=== PATIENT | female | born 1935 | race Caucasian/White ===

== ENCOUNTER 2017-04-01 11:19 | Outpatient (CLI) | payer MEDICARE, OTHER ==
[2017-04-01] MEDS ORDERED: CELEXA40 MG PO (11:37)
[2017-04-01] MEDS ORDERED: DESERYL100 MG PO (11:38)
[2017-04-01] MEDS ORDERED: HYDROCHLOROTH12.5 M1 PO (11:38)
[2017-04-01] MEDS ORDERED: REMERON15 MG PO (11:38)
[2017-04-01] MEDS ORDERED: AUGMENTIN 500-11 TA1 PO (11:39)
[2017-04-01 12:10] VITALS: BP 152/69; BMI 32.3
[2017-04-01 12:10] LABS: BASOPHILS 0.3 % (0-2); EOSINOPHILS 8.1 % (0-7); HEMATOCRIT 25.2 % (36.0-48.0); IMMATURE GRANULOCYTES 0.2 % (0-5); MCH 23.9 pg (26.0-34.0); MCHC 28.6 g/dL (31.0-37.0); MCV 83.7 fL (80.0-100.0); MEAN PLATELET VOLUME 9.2 fL (7.4-10.4); MONOCYTES 7.8 % (2-11); NEUTROPHILS 58.6 % (40-80); PLATELET COUNT 293 10x3/uL (130-400); RBC 3.01 10x6/uL (4.00-5.40); RDW 17.7 % (11.5-14.5); WBC 6.4 10x3/uL (4.8-10.8)
[2017-04-01 12:27] LABS: ANION GAP 18.3 mmol/L (8-16); CALCIUM 8.7 mg/dL (8.5-10.1); CARBON DIOXIDE 21.5 mmol/L (21.0-32.0); POTASSIUM - SERUM 3.8 mmol/L (3.5-5.1)
[2017-04-01 12:31] LABS: HEMOGLOBIN 7.2 g/dL (12-16)
--- NOTE | 2017-04-01 13:25 | NUR ---
1234 CRITICAL LAB VALUE OF HGB 7.2 CALLED FROM LAB 1236 DR BAGLEY PAGED 1246 DR BAGLEY CALLED, HGB 7.2, HCT 25.2, MCV 83.[address]. [address] BAGLEY STATES HE WILL CHECK FOR PREVIOUS LAB RESULTS FOR PT AND CALL BACK. 1300 DR BAGLEY HERE SPEAKING WITH PT 1315 DR BAGLEY STATES PROCEDURE CANCELLED FOR TODAY,PT TO BE DC'D TO HOME. DR BAGLEY HAS SPOKEN WITH DR MAXWELL, AND PT TO FOLLOW UP IN DR MAXWELL' OFFICE TOMORROW AT 12:30. IV DC'D WITH CATH INTACT AND SANDWICH TRAY SERVED TO PT.
--- NOTE | 2017-04-01 13:47 | NUR ---
1345 PT HAS KARMA SANDWICH AND PO FLUIDS WITH NO C/O. REVIEWED DC INSTRUCTIONS AND PT VERBALIZES UNDERSTANDING. PT ESCORTED TO PRIVATE AUTO VIA WC BY STAFF WITH DAUGHTER IN LAW DRIVING HER HOME. PT WITHOUT C/O AT TIME OF DC.
== END 2017-04-01 13:45 | disposition home or self-care (01) ==
LOC: D.CATH 11:19
PROVIDERS: Internal Medicine Cardiovascular Disease
DX: I20.9 Angina pectoris, unspecified (principal); R94.30 Abnormal result of cardiovascular function study, unspecified; R06.02 Shortness of breath; Z01.810 Encounter for preprocedural cardiovascular examination; Z01.811 Encounter for preprocedural respiratory examination; Z01.812 Encounter for preprocedural laboratory examination; Z53.9 Procedure and treatment not carried out, unspecified reason